=== PATIENT | male | born 1955 | race Caucasian/White ===

== ENCOUNTER 2017-03-21 22:34 | Emergency (ER) | payer SELFPAY ==
[2017-03-21 23:11] VITALS: O2SAT 96
--- NOTE | 2017-03-21 23:44 | C.PDOC ---
History Of Present Illness 61 year old male is brought to the ED by EMS for ETOH intoxication. Patient has a Hx of diabetes, denies any pain or self injury at the time. Chief Complaint (Nursing): Substance Abuse History Per: Patient, EMS History/Exam Limitations: no limitations Onset/Duration Of Symptoms: Hrs Current Symptoms Are (Timing): Still Present Suicide/Self Injury Attempted (Context): None Modifying Factor(s): Alcohol Associated Symptoms: denies: Suicidal Thoughts, Suicidal Plan Involuntary Hold By: None Recent travel outside of the [place]: No Additional History Per: EMS Past Medical History Reviewed: Historical Data, Nursing Documentation, Vital Signs Vital Signs: Last Vital Signs Temp 98 F 03/22/17 02:57 Pulse 86 03/22/17 02:57 Resp 16 03/22/17 02:57 BP 159/87 H 03/22/17 02:57 Pulse Ox 96 03/22/17 09:26 - Medical History PMH: Diabetes Surgical History: No Surg Hx Family History: States: Unknown Family Hx - Social History Hx Alcohol Use: Yes Hx Substance Use: No - Immunization History Hx Tetanus Toxoid Vaccination: No Hx Influenza Vaccination: No Hx Pneumococcal Vaccination: No Review Of Systems Constitutional: Negative for: Fever, Chills Cardiovascular: Negative for: Chest Pain, Palpitations Respiratory: Negative for: Cough, Shortness of Breath Gastrointestinal: Negative for: Nausea, Vomiting, Abdominal Pain Neurological: Negative for: Weakness, Numbness Psych: Negative for: Suicidal ideation Physical Exam - Physical Exam Appears: Non-toxic, No Acute Distress Skin: Normal Color, Warm, Dry Head: Atraumatic, Normacephalic Oral Mucosa: Moist Neck: Normal ROM, Supple Chest: Symmetrical, No Tenderness Cardiovascular: Rhythm Regular, No Murmur Respiratory: Normal Breath Sounds, No Rales, No Rhonchi, No Wheezing Gastrointestinal/Abdominal: Soft, No Tenderness Extremity: Normal ROM, No Pedal Edema, No Calf Tenderness, No Swelling Neurological/Psych: Oriented x3, Normal Speech, Normal Cognition ED Course And Treatment - Laboratory Results Result Diagrams: 03/22/17 00:40 03/22/17 00:40 O2 Sat by Pulse Oximetry: 96 (On RA) Pulse Ox Interpretation: Normal Medical Decision Making Medical Decision Making: Impression : 61 y/o male with ETOH intoxication Plan: * UA ordered * Blood work ordered Disposition - Disposition Referrals: [facility] [Outside] Disposition: HOME/ ROUTINE Disposition Time: 06:20 Condition: STABLE Forms: [facility] (Pashto) - POA Present On Arrival: None - Clinical Impression Clinical Impression: Drug abuse, Alcohol intoxication - Scribe Statement The provider has reviewed the documentation as recorded by the Scribe Danie Means All medical record entries made by the Scribe were at my direction and personally dictated by me. I have reviewed the chart and agree that the record accurately reflects my personal performance of the history, physical exam, medical decision making, and the department course for this patient. I have also personally directed, reviewed, and agree with the discharge instructions and disposition.
[2017-03-22 00:44] LABS: EOS % 0.6 % (0.0-4.0); HEMATOCRIT 41.4 % (35.0-51.0); LYMPH # 0.3 K/uL (1.0-4.3); LYMPH % 7.2 % (20.0-40.0); MEAN CELL VOLUME 97.7 fL (80.0-94.0); MEAN CORPUSCULAR HGB CONC 33.8 g/dL (33.0-37.0); MEAN PLATELET VOLUME 9.9 fL (7.2-11.7); MONO # 0.2 K/uL (0.0-0.8); PLATELET COUNT 109 K/uL (130-400); RED CELL DISTRIBUTION WIDTH 13.2 % (11.5-14.5); WHITE BLOOD COUNT 4.4 K/uL (4.8-10.8)
[2017-03-22 01:32] LABS: BILIRUBIN,TOTAL 1.7 mg/dL (0.2-1.3); BLOOD UREA NITROGEN 14 mg/dL (9-20); CALCIUM 8.4 mg/dl (8.6-10.4); CHLORIDE 93 mmol/L (98-107); GFR AFRICAN-AMERICAN > 60; POTASSIUM 3.7 mmol/L (3.6-5.2); SODIUM 131 mmol/L (132-148); TOTAL PROTEIN 9.1 g/dL (6.3-8.3)
[2017-03-22 01:43] LABS: ALB/GLOB RATIO 1.1 (1.0-2.1); ALCOHOL SERUM < 10 mg/dl (0-10); ALKALINE PHOSPHATASE 118 U/L (38-126); ALT/SGPT 24 U/L (21-72); AST/SGOT 50 U/L (17-59); CARBON DIOXIDE 26 mmol/L (22-30); GLUCOSE,RANDOM 153 mg/dL (75-110)
[2017-03-22 02:17] LABS: RBC URINE 1 /hpf (0-3); URINE BILIRUBIN NEGATIVE (NEGATIVE); URINE BLOOD NEGATIVE (NEGATIVE); URINE COLOR Yellow (YELLOW); URINE GLUCOSE (UA) NORMAL (Normal); URINE KETONE TRACE mg/dL (NEGATIVE); URINE LEUKOCYTE ESTERASE NEG Leu/uL (Negative); URINE PROTEIN 1+ mg/dL (NEGATIVE); URINE UROBILINOGEN NORMAL mg/dL (0.2-1.0); WBC URINE 1 /hpf (0-5)
[2017-03-22 02:58] VITALS: BP 159/87; PULSE 86; RESP 16; TEMP 98
[2017-03-22 03:33] LABS: NEUTROPHIL 85 % (50-75); TOTAL CELLS COUNTED 100
[2017-03-22 03:40] LABS: LARGE PLATELETS PRESENT
== END 2017-03-22 03:04 | disposition home or self-care (01) ==
LOC: C.ER 22:34
DX: F10.129 Alcohol abuse with intoxication, unspecified (principal); Y90.0 Blood alcohol level of less than 20 mg/100 ml; F19.10 Other psychoactive substance abuse, uncomplicated; E11.9 Type 2 diabetes mellitus without complications
CPT/HCPCS: 80053; 81001; 82948; 85025; 99283; G0480